=== PATIENT | female | born 1975 | race Caucasian/White ===

== ENCOUNTER 2018-08-01 09:43 | Inpatient (IN) | payer BC ==
[2018-08-01 10:15] LABS: #Basophils 0.1 thou/uL (0.0-0.2); #Eosinphils 0.1 thou/uL (0.0-0.7); #Monocytes 0.8 thou/uL (0.11-0.59); #Neutrophils 7.5 thou/uL (1.40-6.50); %Basophils 0.6 % (0.0-1.0); %Eosinophils 1.2 % (0.0-10.0); %Lymphocytes 18.8 % (21.0-51.0); %Monocytes 7.9 % (0.0-10.0); %Neutrophils 71.6 % (42.0-75.0); Hemoglobin 14.5 g/dL (12.0-16.0); Mean Corpuscular HGB CONC 34.5 g/dL (32.0-36.0); Mean Corpuscular Hemoglobin 29.3 pg (27.0-31.0); Mean Corpuscular Volume 85.2 fL (78.0-98.0); Mean Platelet Volume 8.6 fL (7.4-10.4); Platelet Count 284 thou/uL (130-400); RBC Distribution Width 11.9 % (11.5-14.5); Red Blood Cell (RBC) Count 4.93 mill/uL (4.20-5.40); White Blood Cell (WBC) Count 10.4 thou/uL (4.8-10.8)
[2018-08-01 10:26] LABS: Bilirubin Moderate (Negative); Blood, Urine Moderate (Negative); Clarity CLOUDY (Clear); Glucose, Urine (Dipstick) Negative (Negative); Leukocyte Moderate (Negative); Nitrite Negative (Negative); Protein, Urine (Dipstick) 30 mg/dL (Neg-Trace); Specific Gravity, Urine 1.026 (1.002-1.036); Urobilinogen 0.2 mg/dL (0.2-1.0)
[2018-08-01 10:34] LABS: Bacteria/HPF 1+ HPF (None Seen); Hyaline Casts/LPF NONE SEEN LPF (0-3 Hyaline); Squamous Epithelial 21-50 HPF (0-3)
[2018-08-01 10:35] LABS: ALT (SGPT) 15 U/L (8-55); AST (SGOT) 15 U/L (5-34); Albumin 4.3 g/dL (3.5-5.0); Alkaline Phosphatase 108 U/L (40-150); Anion Gap 19 mmol/L (10-20); BUN (Urea Nitrogen) 10 mg/dL (7.0-18.7); Bilirubin, Total 0.6 mg/dL (0.2-1.2); Calc. Creatinine Clearance 0 mL/min (70-130); Calcium 9.9 mg/dL (7.8-10.44); Carbon Dioxide 21 mmol/L (22-29); Chloride 98 mmol/L (98-107); Estimated GFR-MDRD 84; Glucose 85 mg/dL (70-105); Lipase 8 U/L (8-78); Potassium 4.1 mmol/L (3.5-5.1); Protein, Total 8.3 g/dL (6.0-8.3); Sodium 134 mmol/L (136-145)
[2018-08-01] MEDS ORDERED: Piperacillin/Tazobactam 4.5 GM VIAL ONE (11:11)
[2018-08-01] MEDS ORDERED: methylPREDNISolone Sod Succ/PF 125 MG/2 ML VIAL ONE (11:11)
[2018-08-01] MEDS ORDERED: diphenhydrAMINE 50 MG/ML VIAL ONE (11:11)
[2018-08-01] MEDS ORDERED: ISOVUE-370 76%-LOCM 1 ML ONE (11:39)
--- NOTE | 2018-08-01 12:04 | CT ---
CT Abdomen Pelvis W Con: 08/01/2018 10:14 AM CLINICAL INFORMATION: Abdominal pain; diverticulitis COMPARISON: None. TECHNIQUE: Multiple contiguous axial images were obtained and a CT of the abdomen and pelvis with IV contrast. C oronal reformats were performed. FINDINGS: Lower Chest: within normal limits. Abdomen: Liver: within normal limits. Bile Ducts: Normal caliber. Gallbladder: Removed Pancreas: within normal limits. Spleen: within normal limits. Adrenals: within normal limits. Kidneys: within normal limits. Pelvis: Reproductive Organs: Status post hysterectomy Ureters: within normal limits. Bladder: within normal limits. Peritoneum: No free air or free fluid. Stranding changes are seen adjacent to the left colon. Bowel: Scattered diverticula in the left colon. Mesentery and Retroperitoneum: No enlarged mesenteric or retroperitoneal lymph nodes. Vessels: Normal. Abdominal Wall: within normal limits. Bones: within normal limits. IMPRESSION: Acute diverticulitis
[2018-08-01] MEDS ORDERED: Ondansetron PF 4 MG/2 ML Vial ONE (12:42)
[2018-08-01 13:30] VITALS: BMI 42.0
[2018-08-01] MEDS ORDERED: Morphine 2 MG/ML SYRINGE SLOW IVP PRN (14:04)
[2018-08-01] MEDS ORDERED: Ondansetron PF 4 MG/2 ML Vial IVP PRN ×2 (14:04→20:09)
[2018-08-01] MEDS ORDERED: Ondansetron ODT 4 MG TAB PO PRN (14:05)
[2018-08-01] MEDS: diphenhydrAMINE 25 MG CAP PO SCH ×2 (17:31→23:47)
[2018-08-01] MEDS: Acetaminophen/Codeine 30-300mg Tablet PO PRN (17:32)
[2018-08-01] MEDS: Sodium Chloride 0.9% 1,000 ML IV SCH (17:33)
[2018-08-01] MEDS ORDERED: Piperacillin/Tazobactam 3.375 GM in Sodium Chloride 0.9% 100 ML IVPB SCH (18:00)
[2018-08-01] MEDS: Hyoscyamine Sulfate SL 0.125 mg Tablet SL PRN (18:23)
[2018-08-01] MEDS ORDERED: Lorazepam 2 MG/ML VIAL SLOW IVP PRN (20:09)
[2018-08-01] MEDS ORDERED: Sodium Chloride 0.9% 1,000 ML IV SCH (20:45)
[2018-08-01] MEDS: Piperacillin/Tazobactam 3.375 GM in Sodium Chloride 0.9% 100 ML IVPB SCH (23:47)
[2018-08-01] MEDS: Lorazepam 1 MG TAB PO PRN (23:48)
--- NOTE | 2018-08-02 00:38 | HP ---
CHIEF COMPLAINT: Diverticulitis, dehydration with UTI. HISTORY OF PRESENT ILLNESS: The patient is a 43-year-old female who began to have acute left lower quadrant pain on 07/28. The pain worsened steadily over the week. She came in to see Dr. Javier' program assistant in the office. She was felt she needed to be further evaluated with a CAT scan, so she arrived in the ER in [place], where they did a CT of the abdomen confirming the diagnosis of acute diverticulitis. Evaluation further revealed a urinary tract infection and ketones greater than 80. It really hurts her to lift her left leg and prolonged standing brought left lower quadrant pain from the left lower quadrant to her whole stomach. It was not relieved with any pain. She graded her pain at 6/10 with extreme nausea such that she was unable to eat or drink and became very dehydrated. PAST MEDICAL HISTORY: Significant for mild obesity. PAST SURGICAL HISTORY: Includes appendectomy, cholecystectomy, bladder sling, and partial hysterectomy. PSYCHIATRIC HISTORY: None. SOCIAL HISTORY: Denies alcohol or drug use. No smoking. ALLERGIES: TO CIPRO AND IODINE CONTRAST DYE. CURRENT MEDICATIONS: None. REVIEW OF SYSTEMS: At the time of admission, CONSTITUTIONAL: Denies fever, chills, malaise. HEENT: Denies drainage or lesions in ears, nose, or throat. Her pharynx is dry. CHEST: Denies shortness of breath or cough. CARDIOVASCULAR: Denies palpitations or chest pain. ABDOMEN: Admits the left lower quadrant pain. Positive nausea. Negative diarrhea, vomiting. GI: Negative blood in urine or stool or dysuria. Positive frequency. MUSCULOSKELETAL: Denies any pain in joints or limbs. SKIN: No new rashes or lesions. NEUROLOGIC: Denies any trouble with mentation, headaches, any areas of hypesthesia or anesthesia. ENDOCRINE: Denies any areas of swelling, ecchymosis, or edema. PHYSICAL EXAMINATION: At the time of admission, VITAL SIGNS: Blood pressure 120/79, pulse 104, respirations 20, and temperature 98.5. Pain scale 6/10 with an O2 saturation of 99% on room air. GENERAL: This is a well-developed, well-nourished, mildly obese female, alert, oriented, and cooperative. HEENT: Normocephalic, atraumatic. Pupils are equal, round, and reactive to light. Extraocular muscles are intact. TMs, nares, and pharynx are clear. Membranes somewhat dry. NECK: Supple. Trachea midline. No mass. CHEST: Clear to auscultation. HEART: Regular rate and rhythm. Mildly tachycardic. BREASTS: Deferred. ABDOMEN: Tender, left lower quadrant. No guarding or rebound. Generally soft. Unable to appreciate organomegaly. : Deferred. EXTREMITIES: Without clubbing, cyanosis, or edema. Normal range of motion present. SKIN: Without acute rashes or lesions. NEUROLOGIC: Cranial nerves are intact. Unable to test gait or cerebellar function at this time. Sensory exam is grossly intact. Mental status is at baseline. LABORATORY DATA: Lab work thus far shows WBC at 10.4, hemoglobin 14.5, hematocrit 42, platelets at 284. Sodium at 134, potassium 4.1, chloride 98, CO2 21, BUN 10 , creatinine 0.75 with a glucose of 85. Liver functions unremarkable. Urinalysis shows greater than 80 ketones, nitrites negative, blood in urine is positive, leukocyte esterase is moderately high with wbc's at 7-10. ASSESSMENT: 1. Acute diverticulitis. 2. Dehydration. 3. Urinary tract infection. PLAN: Continue IV fluid resuscitation. Continue IV antibiotics. Serially re-evaluate the patient and provide pain management. Job ID: [id number] [facility]
[2018-08-02] MEDS: Sodium Chloride 0.9% 1,000 ML IV SCH ×2 (02:06→05:11)
[2018-08-02] MEDS: Piperacillin/Tazobactam 3.375 GM in Sodium Chloride 0.9% 100 ML IVPB SCH ×3 (05:12→17:30)
[2018-08-02 06:17] LABS: #Lymphocytes 1.4 thou/uL (1.20-3.40); #Monocytes 0.8 thou/uL (0.11-0.59); #Neutrophils 12.9 thou/uL (1.40-6.50); %Basophils 0.1 % (0.0-1.0); %Eosinophils 0.3 % (0.0-10.0); %Lymphocytes 8.9 % (21.0-51.0); %Neutrophils 85.7 % (42.0-75.0); Hemoglobin 12.7 g/dL (12.0-16.0); Mean Corpuscular HGB CONC 32.3 g/dL (32.0-36.0); Mean Corpuscular Hemoglobin 27.8 pg (27.0-31.0); Platelet Count 301 thou/uL (130-400); RBC Distribution Width 11.8 % (11.5-14.5); Red Blood Cell (RBC) Count 4.55 mill/uL (4.20-5.40); White Blood Cell (WBC) Count 15.1 thou/uL (4.8-10.8)
[2018-08-02 06:37] LABS: Anion Gap 14 mmol/L (10-20); BUN (Urea Nitrogen) 11 mg/dL (7.0-18.7); Calc. Creatinine Clearance 174 mL/min (70-130); Calcium 9.4 mg/dL (7.8-10.44); Carbon Dioxide 19 mmol/L (22-29); Chloride 107 mmol/L (98-107); Estimated GFR-MDRD Greater than 90; Glucose 116 mg/dL (70-105); Potassium 3.8 mmol/L (3.5-5.1); Sodium 136 mmol/L (136-145)
[2018-08-02] MEDS ORDERED: Milk Of Magnesia 30 ML UDCUP PO SCH (15:45)
[2018-08-02] MEDS: Hyoscyamine Sulfate SL 0.125 mg Tablet SL PRN (17:30)
[2018-08-02] MEDS: Acetaminophen/Codeine 30-300mg Tablet PO PRN (19:03)
[2018-08-02] MEDS: Lorazepam 1 MG TAB PO PRN (21:54)
[2018-08-03] MEDS: Piperacillin/Tazobactam 3.375 GM in Sodium Chloride 0.9% 100 ML IVPB SCH ×2 (00:03→06:34)
[2018-08-03 04:26] LABS: #Eosinphils 0.1 thou/uL (0.0-0.7); #Lymphocytes 2.9 thou/uL (1.20-3.40); #Monocytes 0.5 thou/uL (0.11-0.59); #Neutrophils 4.6 thou/uL (1.40-6.50); %Basophils 0.2 % (0.0-1.0); %Eosinophils 0.9 % (0.0-10.0); %Lymphocytes 36.1 % (21.0-51.0); %Monocytes 6.4 % (0.0-10.0); %Neutrophils 56.4 % (42.0-75.0); Hemoglobin 11.9 g/dL (12.0-16.0); Mean Corpuscular HGB CONC 33.1 g/dL (32.0-36.0); Mean Corpuscular Hemoglobin 28.8 pg (27.0-31.0); Mean Corpuscular Volume 87.1 fL (78.0-98.0); Mean Platelet Volume 7.6 fL (7.4-10.4); Platelet Count 273 thou/uL (130-400); Red Blood Cell (RBC) Count 4.13 mill/uL (4.20-5.40); White Blood Cell (WBC) Count 8.1 thou/uL (4.8-10.8)
[2018-08-03 04:44] LABS: Anion Gap 12 mmol/L (10-20); BUN (Urea Nitrogen) 13 mg/dL (7.0-18.7); Calc. Creatinine Clearance 167 mL/min (70-130); Calcium 8.7 mg/dL (7.8-10.44); Carbon Dioxide 24 mmol/L (22-29); Chloride 108 mmol/L (98-107); Estimated GFR-MDRD 87; Glucose 93 mg/dL (70-105); Sodium 140 mmol/L (136-145)
[2018-08-03 08:20] VITALS: BP 105/72; TEMP 97.9
[2018-08-03] MEDS ORDERED: GoLYTELY 4,000 ml Bottle PO SCH (10:30)
== END 2018-08-03 11:57 | disposition home or self-care (01) | DRG 392 ==
LOC: ERS 09:43 → T4-B 12:15
PROVIDERS: ADMIT Specialist; ATTEND Specialist
DX: K57.92 Diverticulitis of intestine, part unspecified, without perforation or abscess without bleeding (principal); N39.0 Urinary tract infection, site not specified; K59.00 Constipation, unspecified; F41.9 Anxiety disorder, unspecified
CPT/HCPCS: 36415; 74177; 80048; 80053; 81003; 81015; 83690; 85025; 96365; 96375; J1200; J2060; J2405; J2543; J2930; J3490; Q0163; Q9966

== ENCOUNTER 2019-04-10 15:13 | Outpatient (CLI) | payer BC ==
--- NOTE | 2019-04-10 15:35 | RAD ---
EXAM: Chest PA and lateral: HISTORY: Pneumonia COMPARISON: 12/24/2012 FINDINGS: Heart: Normal cardiac silhouette Aorta: Unremarkable Pulmonary vessels: Normal Costophrenic angles: Costophrenic angles are clear. Lungs: No consolidation or masses. Pneumothorax: No pneumothorax Osseous structures: No osseous abnormalities IMPRESSION: No acute cardiopulmonary process.
== END 2019-04-10 15:14 | disposition home or self-care (01) ==
LOC: BICRAD 15:13
PROVIDERS: ATTEND Specialist
DX: J15.8 Pneumonia due to other specified bacteria (principal)
CPT/HCPCS: 71046

== ENCOUNTER 2019-05-15 15:26 | Emergency (ER) | payer BC ==
--- NOTE | 2019-05-15 16:01 | RAD ---
XR Chest Pa Lat STANDARD History: Chest pain Comparison: Radiograph April 10, 2019 Findings: Lungs are clear. No pneumothorax or effusion. Cardiac silhouette and mediastinal contours a re within normal limits. No acute osseous abnormality. Impression: No acute intrathoracic abnormality.
[2019-05-15 16:28] LABS: #Basophils 0.1 thou/uL (0.0-0.2); #Eosinphils 0.1 thou/uL (0.0-0.7); #Lymphocytes 2.8 thou/uL (1.20-3.40); #Monocytes 0.8 thou/uL (0.11-0.59); #Neutrophils 6.4 thou/uL (1.40-6.50); %Basophils 0.8 % (0.0-1.0); %Eosinophils 1.1 % (0.0-10.0); %Lymphocytes 27.2 % (21.0-51.0); %Monocytes 7.9 % (0.0-10.0); Hemoglobin 14.7 g/dL (12.0-16.0); Mean Corpuscular Hemoglobin 29.4 pg (27.0-31.0); Mean Corpuscular Volume 86.6 fL (78.0-98.0); Mean Platelet Volume 8.4 fL (7.4-10.4); Platelet Count 247 thou/uL (130-400); RBC Distribution Width 12.5 % (11.5-14.5); Red Blood Cell (RBC) Count 4.98 mill/uL (4.20-5.40); White Blood Cell (WBC) Count 10.2 thou/uL (4.8-10.8)
[2019-05-15 16:52] LABS: ALT (SGPT) 19 U/L (8-55); AST (SGOT) 18 U/L (5-34); Albumin 4.3 g/dL (3.5-5.0); Alkaline Phosphatase 94 U/L (40-110); Anion Gap 12 mmol/L (10-20); BUN (Urea Nitrogen) 8 mg/dL (7.0-18.7); Bilirubin, Total 0.5 mg/dL (0.2-1.2); CK (CPK) 90 U/L (29-168); Calc. Creatinine Clearance 0 mL/min (70-130); Calcium 9.4 mg/dL (7.8-10.44); Carbon Dioxide 21 mmol/L (22-29); Chloride 106 mmol/L (98-107); Estimated GFR-MDRD 90; Globulin 3.2 g/dL (2.4-3.5); Glucose 85 mg/dL (70-105); Potassium 4.2 mmol/L (3.5-5.1); Protein, Total 7.5 g/dL (6.0-8.3); Sodium 135 mmol/L (136-145)
[2019-05-15] MEDS ORDERED: HYDROcodone/Acetaminophen 5/325 mg Tablet ONE (19:11)
--- NOTE | 2019-05-17 15:40 | EKG ---
Test Reason : Blood Pressure : / mmHG Vent. Rate : 094 BPM Atrial Rate : 094 BPM P-R Int : 138 ms QRS Dur : 070 ms QT Int : 356 ms P-R-T Axes : 037 021 021 degrees QTc Int : 445 ms Sinus rhythm with occasional Premature ventricular complexes Otherwise normal ECG Confirmed by ROHIT NUNEZ M.D. ([id number]), business editor HORTENSIA CARNEY ([id number] on 05/17/2019 3:39:38 PM Referred By: Confirmed By:ROHIT NUNEZ M.D.
== END 2019-05-15 21:43 | disposition home or self-care (01) ==
LOC: ERS 15:26
DX: R07.9 Chest pain, unspecified (principal); Z79.82 Long term (current) use of aspirin
CPT/HCPCS: 36415; 71046; 80053; 82550; 84443; 84484; 85025; 85379; 93005

== ENCOUNTER 2019-10-03 08:20 | Outpatient (CLI) | payer BC ==
[2019-10-03] MEDS ORDERED: diphenhydrAMINE 50 MG/ML VIAL ONE (09:05)
[2019-10-03] MEDS ORDERED: methylPREDNISolone Sod Succ/PF 125 MG/2 ML VIAL ONE (09:05)
[2019-10-03] MEDS ORDERED: diphenhydrAMINE 50 MG/ML VIAL IVP SCH (09:15)
[2019-10-03] MEDS ORDERED: methylPREDNISolone Sod Succ/PF 125 MG/2 ML VIAL IVP SCH (09:15)
[2019-10-03] MEDS ORDERED: Famotidine/PF 20 mg/2ml Vial SLOW IVP SCH (09:15)
[2019-10-03] MEDS ORDERED: Iopamidol 370 76% 100 ML VIAL ONE (11:32)
--- NOTE | 2019-10-03 11:39 | CT ---
CT ABDOMEN AND PELVIS WITH IV CONTRAST: Date: 10/03/2019 INDICATION: 44-year-old female with history of abdominal pain. TECHNIQUE: The patient reportedly has an IV contrast allergy and was premedicated for the examination. FastPrep was administered under the guidance of Dr. Flowers. COMPARISON: Prior exam dated 08/01/2018. FINDINGS: Lung bases are clear. There is mild diffuse fatty liver. The gallbladder is surgically absent. The pancreas, adrenal glands , and spleen are normal appearing. No suspicious focal renal lesion is evident. There is slight cortical irregularity involving the left kidney which may be related to lobulation or sequelae of remote injury. No free fluid or enlarged lymph nodes are evident. There are mild vascular calcifications involving the abdominal aorta. Colon is largely decompressed. There are a few scattered colonic diverticula without evidence of acti ve diverticulitis. The appendix is not definitely identified. Uterus is not definitely seen. The righ t adnexa is seen within the right lower quadrant. The bladder is partially decompressed. The rectum a nd perirectal soft tissues are unremarkable appearing. No definite acute osseous abnormality is evident. IMPRESSION: 1. Fatty liver. 2. Cholecystectomy. 3. Colonic diverticulosis. 4. Hysterectomy and left oophorectomy. 5. Nonvisualization of appendix. POS: BH
== END 2019-10-03 08:21 | disposition home or self-care (01) ==
LOC: CT 08:20
PROVIDERS: ATTEND Specialist
DX: K57.92 Diverticulitis of intestine, part unspecified, without perforation or abscess without bleeding (principal); R10.9 Unspecified abdominal pain; K57.30 Diverticulosis of large intestine without perforation or abscess without bleeding; K76.0 Fatty (change of) liver, not elsewhere classified; Z90.49 Acquired absence of other specified parts of digestive tract; Z90.710 Acquired absence of both cervix and uterus; Z90.721 Acquired absence of ovaries, unilateral
CPT/HCPCS: 74177; J1200; J2930; Q9967; S0028

== ENCOUNTER 2020-08-20 12:46 | Emergency (ER) | payer BC ==
[2020-08-20] MEDS ORDERED: Ketorolac Tromethamine 30 MG/ML VIAL ONE (13:13)
[2020-08-20 13:41] LABS: #Eosinphils 0.4 thou/uL (0.0-0.7); #Lymphocytes 2.6 thou/uL (1.20-3.40); #Monocytes 1.1 thou/uL (0.11-0.59); #Neutrophils 10.3 thou/uL (1.40-6.50); %Basophils 0.2 % (0.0-1.0); %Eosinophils 2.6 % (0.0-10.0); %Lymphocytes 17.8 % (21.0-51.0); %Monocytes 7.8 % (0.0-10.0); %Neutrophils 71.6 % (42.0-75.0); Hemoglobin 14.3 g/dL (12.0-16.0); Mean Corpuscular HGB CONC 32.5 g/dL (32.0-36.0); Mean Corpuscular Hemoglobin 28.5 pg (27.0-31.0); Mean Corpuscular Volume 87.7 fL (78.0-98.0); Mean Platelet Volume 7.9 fL (7.4-10.4); Platelet Count 275 thou/uL (130-400); White Blood Cell (WBC) Count 14.4 thou/uL (4.8-10.8)
[2020-08-20 14:11] LABS: ALT (SGPT) 32 U/L (8-55); AST (SGOT) 34 U/L (5-34); Albumin 4.3 g/dL (3.5-5.0); Alkaline Phosphatase 114 U/L (40-110); Anion Gap 16 mmol/L (10-20); BUN (Urea Nitrogen) 9 mg/dL (7.0-18.7); Bilirubin, Total 0.9 mg/dL (0.2-1.2); Calc. Creatinine Clearance 0 mL/min (70-130); Calcium 9.4 mg/dL (7.8-10.44); Carbon Dioxide 21 mmol/L (22-29); Chloride 104 mmol/L (98-107); Glucose 97 mg/dL (70-105); Protein, Total 8.3 g/dL (6.0-8.3); Sodium 137 mmol/L (136-145)
[2020-08-20 14:51] LABS: Bilirubin Negative (Negative); Blood, Urine 1+ (Negative); Clarity Clear (Clear); Glucose, Urine (Dipstick) Normal (Negative); Ketone, Urine Trace mg/dL (Negative); Leukocyte Negative Leu/uL (Negative); Nitrite Negative (Negative); Protein, Urine (Dipstick) 20 mg/dL (Neg-Trace); RBC/HPF None Seen HPF (0-3); Specific Gravity, Urine 1.032 (1.002-1.036); Squamous Epithelial 0-3 HPF (0-3); Urobilinogen Normal mg/dL (Less than 2); WBC/HPF 0-3 HPF (0-3); pH, Urine 5.5 (5.0-9.0)
[2020-08-20 14:52] LABS: Bacteria/HPF 1+ HPF (None Seen)
[2020-08-20] MEDS ORDERED: Dexamethasone 10 MG/ML VIAL ONE (15:23)
== END 2020-08-20 15:36 | disposition home or self-care (01) ==
LOC: ERS 12:46
DX: J06.9 Acute upper respiratory infection, unspecified (principal)
CPT/HCPCS: 36415; 71045; 80053; 81003; 81015; 83605; 85025; 87040; 87081; 87086; 87430; 96374; J1100; J1885

== ENCOUNTER 2022-04-10 11:23 | Outpatient (CLI) | payer OTHER | END 2022-04-10 11:24 | disposition home or self-care (01) | LOC: RAD 11:23 | PROVIDERS: ATTEND Nurse Practitioner Family | DX: R05.9 Cough, unspecified (principal); R06.02 Shortness of breath; R69 Illness, unspecified | CPT/HCPCS: 71046 ==